=== PATIENT | female | born 1995 | race Caucasian/White ===

== ENCOUNTER 2018-05-19 22:09 | Emergency (ER) | payer MEDICAID ==
[~2018-05-19] VITALS: Ht 154.9 cm; Wt 63.0 kg
[2018-05-19 23:28] VITALS: BP 95/50
[2018-05-19] MEDS ORDERED: ACETAMINOPHEN 325 MG TABLET ONE (23:32)
[2018-05-19 23:54] LABS: BASOPHILS # (AUTO) 0.04 x10^3/uL (0-0.1); BASOPHILS % (AUTO) 1 % (0-1); EOSINOPHILS # (AUTO) 0.04 x10^3/uL (0-0.4); EOSINOPHILS % (AUTO) 1 % (1-7); LYMPHOCYTES # (AUTO) 2.01 x10^3/uL (1-3.4); LYMPHOCYTES % (AUTO) 31 % (22-44); MD NO; MEAN CORPUSCULAR HEMOGLOBIN 28.5 pg (27.0-34.8); MEAN CORPUSCULAR HGB CONC 33.8 g/dL (32.4-35.8); MEAN CORPUSCULAR VOLUME 84.4 fL (80-100); MONOCYTES # (AUTO) 0.41 x10^3/uL (0.2-0.8); MONOCYTES % (AUTO) 6 % (2-9); NEUTROPHILS % (AUTO) 62 % (42-75); PLATELET COUNT 349 x10^3/uL (130-400); RED BLOOD COUNT 4.23 x10^6/uL (3.82-5.3); RED CELL DISTRIBUTION WIDTH 14.8 % (9.6-15.2)
[2018-05-20] MEDS ORDERED: ACETAMINOPHEN 325 MG TABLET PO ONE
[2018-05-20 00:01] LABS: MICROSCOPIC INDICATED
[2018-05-20 00:05] LABS: ALANINE AMINOTRANSFERASE 25 U/L (12-78); ALBUMIN 3.5 g/dL (3.4-5.0); ANION GAP 7 mmol/L (5-15); CALCIUM 8.8 mg/dL (8.5-10.1); CHLORIDE 107 mmol/L (98-107); CREATININE 0.62 mg/dL (0.55-1.02)
[2018-05-20 00:16] LABS: CULTURE INDICATED? YES
[2018-05-20 00:22] LABS: ALKALINE PHOSPHATASE 79 U/L (45-117); BILIRUBIN,TOTAL 0.1 mg/dL (0.2-1.0); TOTAL PROTEIN 7.7 g/dL (6.4-8.2)
== END 2018-05-20 01:20 | disposition home or self-care (01) ==
LOC: ED 23:59
DX: O20.0 Threatened abortion (principal); Z3A.01 Less than 8 weeks gestation of pregnancy
CPT/HCPCS: 36415; 76801; 80053; 81001; 84702; 85025; 86901; 87086; 99285

== ENCOUNTER 2018-08-25 10:25 | Observation (INO) | payer MEDICAID ==
[~2018-08-25] VITALS: Ht 154.9 cm; Wt 68.2 kg
[2018-08-25 11:09] LABS: MICROSCOPIC INDICATED
[2018-08-25] MEDS ORDERED: ONDANSETRON 2MG/ML, 2ML ONE ×2 (11:26→17:51)
[2018-08-25] MEDS: ONDANSETRON 2MG/ML, 2ML IVPush PRN ×2 (11:29→17:53)
[2018-08-25] MEDS ORDERED: LACTATED RINGERS 1,000 ML IVBOLUS ONE (11:30)
[2018-08-25 11:38] VITALS: BP 99/57
[2018-08-25 11:52] LABS: BASOPHILS # (AUTO) 0.02 x10^3/uL (0-0.1); BASOPHILS % (AUTO) 0 % (0-1); EOSINOPHILS # (AUTO) 0.01 x10^3/uL (0-0.4); EOSINOPHILS % (AUTO) 0 % (1-7); LYMPHOCYTES # (AUTO) 0.65 x10^3/uL (1-3.4); LYMPHOCYTES % (AUTO) 9 % (22-44); MD NO; MEAN CORPUSCULAR HEMOGLOBIN 27.3 pg (27.0-34.8); MEAN CORPUSCULAR VOLUME 82.5 fL (80-100); MEAN PLATELET VOLUME 8.8 fL (7.4-10.4); MONOCYTES # (AUTO) 0.23 x10^3/uL (0.2-0.8); MONOCYTES % (AUTO) 3 % (2-9); NEUTROPHILS # (AUTO) 6.06 x10^3/uL (1.8-6.8); NEUTROPHILS % (AUTO) 87 % (42-75); PLATELET COUNT 296 x10^3/uL (130-400); RED BLOOD COUNT 3.93 x10^6/uL (3.82-5.3); RED CELL DISTRIBUTION WIDTH 13.9 % (9.6-15.2)
[2018-08-25] MEDS ORDERED: D5%-LACTATED RINGERS 1,000 ML IV ONE ×2 (12:30→12:39)
[2018-08-25 12:47] LABS: CHLORIDE 107 mmol/L (98-107)
[2018-08-25] MEDS ORDERED: METOCLOPRAMIDE 5 MG/ML, 2ML ONE (12:59)
[2018-08-25] MEDS ORDERED: METOCLOPRAMIDE 5 MG/ML, 2ML IVPush PRN (13:00)
[2018-08-25 13:07] LABS: ALANINE AMINOTRANSFERASE 11 U/L (12-78); ALBUMIN 2.6 g/dL (3.4-5.0); ALKALINE PHOSPHATASE 94 U/L (45-117); ANION GAP 10 mmol/L (5-15); BILIRUBIN,TOTAL 0.3 mg/dL (0.2-1.0); CALCIUM 8.4 mg/dL (8.5-10.1); CREATININE 0.52 mg/dL (0.55-1.02); TOTAL PROTEIN 7.4 g/dL (6.4-8.2)
[2018-08-25 14:08] LABS: RAPID INFLUENZA A Negative (Negative); RAPID INFLUENZA B Negative (Negative)
[2018-08-25] MEDS ORDERED: PROMETHAZINE 25 MG SUPP PR PRN (15:00)
[2018-08-25] MEDS ORDERED: LACTATED RINGERS 1,000 ML IV SCH (16:00)
[2018-08-26] MEDS ORDERED: ONDANSETRON 2MG/ML, 2ML ONE (09:26)
[2018-08-26] MEDS: ONDANSETRON 2MG/ML, 2ML IVPush PRN (09:32)
[2018-08-26] MEDS ORDERED: ONDA4TAB10 PO (13:18)
== END 2018-08-26 13:26 | disposition home or self-care (01) ==
LOC: LDOP 10:25 → LDIP 12:52
PROVIDERS: ADMIT Obstetrics & Gynecology; ATTEND Obstetrics & Gynecology
DX: O21.9 Vomiting of pregnancy, unspecified (principal); O99.282 Endocrine, nutritional and metabolic diseases complicating pregnancy, second trimester; E86.0 Dehydration; Z3A.20 20 weeks gestation of pregnancy
CPT/HCPCS: 36415; 59025; 80053; 81001; 82150; 83690; 85025; 87086; 87400; 96361; 96374; 96375; 96376; G0378; J2405; J2765; J7120; J7121

== ENCOUNTER → 2018-09-14 | Outpatient (CLI) | payer MEDICAID ==
[~2018-09-14] VITALS: Ht 154.9 cm; Wt 68.2 kg
[~2018-09-14] MED LIST: ONDA4TAB10 PO
[2018-09-14 21:56] VITALS: BP 106/60
[2018-09-14 22:16] LABS: MICROSCOPIC INDICATED
[2018-09-14 23:18] LABS: AMPHETAMINE SCREEN, URINE Negative (Negative); BARBITURATE SCREEN, URINE Negative (Negative); BENZODIAZEPINE SCREEN, URINE Negative (Negative); CANNABINOID SCREEN, URINE Negative (Negative); COCAINE SCREEN, URINE Negative (Negative); METHADONE SCREEN, URINE Negative (Negative); OPIATE SCREEN, URINE Negative (Negative)
== END | disposition home or self-care (01) ==
LOC: LDOP 21:38
PROVIDERS: ATTEND Obstetrics & Gynecology
DX: O26.892 Other specified pregnancy related conditions, second trimester (principal); R10.9 Unspecified abdominal pain; O62.9 Abnormality of forces of labor, unspecified; Z3A.23 23 weeks gestation of pregnancy
CPT/HCPCS: 36415; 59025; 80307; 81001; 82731; 87086; 99211; G0463

== ENCOUNTER 2018-10-28 08:18 | Outpatient (CLI) | payer MEDICAID | END 2018-10-28 10:13 | disposition home or self-care (01) | LOC: LDOP 08:18 | PROVIDERS: ATTEND Obstetrics & Gynecology | DX: O26.893 Other specified pregnancy related conditions, third trimester (principal); R10.9 Unspecified abdominal pain; Z3A.29 29 weeks gestation of pregnancy | CPT/HCPCS: 59025; 99211; G0463 ==

== ENCOUNTER 2018-11-11 16:04 | Outpatient (CLI) | payer MEDICAID ==
[~2018-11-11] VITALS: Ht 154.9 cm; Wt 73.6 kg
[2018-11-11 16:48] VITALS: BP 101/66
[2018-11-11 16:48] LABS: MICROSCOPIC INDICATED
[2018-11-11] MEDS ORDERED: PREN1TAB60 PO (17:16)
== END 2018-11-11 18:50 | disposition home or self-care (01) ==
LOC: LDOP 16:04
PROVIDERS: ATTEND Obstetrics & Gynecology
DX: O36.8130 Decreased fetal movements, third trimester, not applicable or unspecified (principal); Z3A.31 31 weeks gestation of pregnancy
CPT/HCPCS: 59025; 76819; 81001; 87086; 99211; G0463

== ENCOUNTER 2018-12-19 14:01 | Outpatient (CLI) | payer MEDICAID ==
[~2018-12-19] VITALS: Ht 154.9 cm; Wt 76.8 kg
[~2018-12-19 14:01] MED LIST changes: +PREN1TAB60 PO
[2018-12-19 14:24] VITALS: BP 111/65
[2018-12-19 14:33] LABS: MICROSCOPIC INDICATED
[2018-12-19] MEDS ORDERED: NITR100C56 PO (15:23)
== END 2018-12-19 15:59 | disposition home or self-care (01) ==
LOC: LDOP 14:01
PROVIDERS: ATTEND Obstetrics & Gynecology
DX: O26.893 Other specified pregnancy related conditions, third trimester (principal); O99.333 Smoking (tobacco) complicating pregnancy, third trimester; Z3A.37 37 weeks gestation of pregnancy
CPT/HCPCS: 59025; 81001; 87086; 99211; G0463

== ENCOUNTER 2018-12-22 08:07 | Inpatient (IN) | payer MEDICAID ==
[~2018-12-22] VITALS: Ht 154.9 cm; Wt 77.3 kg
[~2018-12-22 08:07] MED LIST changes: +NITR100C56 PO
[2018-12-22 08:44] VITALS: BP 105/67
[2018-12-22] MEDS: LACTATED RINGERS 1,000 ML IV SCH (08:45)
[2018-12-22] MEDS ORDERED: D5%-LACTATED RINGERS 1,000 ML IV SCH (09:05)
[2018-12-22] MEDS ORDERED: OXYTOCIN 30U/ 0.9% NaCL 500ML 500 ML IV ONE (09:05)
[2018-12-22] MEDS ORDERED: OXYTOCIN 30U/ 0.9% NaCL 500ML 500 ML IV PRN ×3 (09:05→22:11)
[2018-12-22] MEDS ORDERED: OXYTOCIN 30U/ 0.9% NaCL 500ML 500 ML ONE (09:12)
[2018-12-22] MEDS ORDERED: NEWBORN KIT ONE (09:12)
[2018-12-22] MEDS ORDERED: MISOPROSTOL 200 MCG TABLET ONE (09:12)
[2018-12-22] MEDS ORDERED: LIDOCAINE 1%, 20ML ONE (09:12)
[2018-12-22] MEDS ORDERED: ONDANSETRON 2MG/ML, 2ML IVPush PRN (09:30)
[2018-12-22] MEDS ORDERED: CALCIUM CARBONATE 500 MG TAB.CHEW PO PRN (09:30)
[2018-12-22] MEDS ORDERED: FENTANYL PF 100 MCG/2ML IVPush PRN (09:30)
[2018-12-22] MEDS ORDERED: FENTANYL PF 100 MCG/2ML IV PRN (09:30)
[2018-12-22 09:36] LABS: BASOPHILS # (AUTO) 0.02 x10^3/uL (0-0.1); BASOPHILS % (AUTO) 0 % (0-1); EOSINOPHILS # (AUTO) 0.02 x10^3/uL (0-0.4); EOSINOPHILS % (AUTO) 0 % (1-7); LYMPHOCYTES # (AUTO) 1.55 x10^3/uL (1-3.4); LYMPHOCYTES % (AUTO) 28 % (22-44); MD NO; MEAN CORPUSCULAR HEMOGLOBIN 23.6 pg (27.0-34.8); MEAN CORPUSCULAR HGB CONC 31.6 g/dL (32.4-35.8); MEAN CORPUSCULAR VOLUME 74.8 fL (80-100); MEAN PLATELET VOLUME 8.5 fL (7.4-10.4); MONOCYTES # (AUTO) 0.46 x10^3/uL (0.2-0.8); MONOCYTES % (AUTO) 8 % (2-9); NEUTROPHILS # (AUTO) 3.58 x10^3/uL (1.8-6.8); NEUTROPHILS % (AUTO) 64 % (42-75); PLATELET COUNT 254 x10^3/uL (130-400); RED BLOOD COUNT 3.51 x10^6/uL (3.82-5.3); RED CELL DISTRIBUTION WIDTH 16.7 % (9.6-15.2)
[2018-12-22] MEDS ORDERED: MISOPROSTOL 25 MCG TABLET VG PRN (11:30)
[2018-12-22] MEDS ORDERED: MISOPROSTOL 25 MCG TABLET ONE ×2 (11:34→16:00)
[2018-12-22] MEDS ORDERED: ACETAMINOPHEN 325 MG TABLET ONE ×2 (16:07→23:12)
[2018-12-22] MEDS: ACETAMINOPHEN 325 MG TABLET PO PRN ×2 (16:09→23:13)
[2018-12-22] MEDS ORDERED: MISOPROSTOL 25 MCG TABLET PO PRN (19:30)
[2018-12-22] MEDS ORDERED: LACTATED RINGERS 1,000 ML IV SCH (20:14)
[2018-12-22] MEDS ORDERED: FENTANYL/BUPIV./NS/PF 250 ML EPIDCONT SCH (20:14)
[2018-12-22] MEDS ORDERED: FENTANYL PF 500 MCG, BUPIVACAINE/PF 0.5%, 30ML 62.5 ML in SODIUM CHLORIDE 0.9% 177.5 ML EPIDCONT SCH (20:17)
[2018-12-22] MEDS ORDERED: LACTATED RINGERS 1,000 ML IVBOLUS PRN (20:30)
[2018-12-22] MEDS ORDERED: NALOXONE 0.4 MG/ML, 1ML IVPush PRN (20:30)
[2018-12-22] MEDS ORDERED: EPHEDRINE 50 MG/ML, 1ML IVPush PRN (20:30)
[2018-12-23] MEDS ORDERED: CEFAZOLIN PMX 1GM/50ML 50 ML IV SCH (06:30)
[2018-12-23] MEDS ORDERED: CEFAZOLIN PMX 1GM/50ML 50 ML ONE (06:32)
[2018-12-23] MEDS ORDERED: BUPIVACAINE 0.25% ONE (07:55)
[2018-12-23] MEDS ORDERED: FENTANYL PF 100 MCG/2ML ONE ×2 (07:55→08:34)
[2018-12-23] MEDS: OXYTOCIN 30U/ 0.9% NaCL 500ML 500 ML IV SCH ×2 (09:18→19:18)
[2018-12-23] MEDS ORDERED: OXYTOCIN 10 UNITS/ML, 1ML IM PRN (09:30)
[2018-12-23] MEDS ORDERED: METHYLERGONOVINE 0.2 MG/ML IM PRN (09:30)
[2018-12-23] MEDS ORDERED: ONDANSETRON 2MG/ML, 2ML IV PRN (09:30)
[2018-12-23] MEDS ORDERED: ACETAMINOPHEN 325 MG TABLET PO PRN (09:30)
[2018-12-23] MEDS ORDERED: OXYcodone IR 5MG TABLET PO PRN (09:30)
[2018-12-23] MEDS: LACTATED RINGERS 1,000 ML IV SCH (09:41)
[2018-12-23] MEDS ORDERED: IBUPROFEN 800 MG TABLET ONE (10:45)
[2018-12-23] MEDS: IBUPROFEN 800 MG TABLET PO PRN ×2 (10:47→19:46)
[2018-12-23] MEDS: OXYcodone/APAP 5/325MG TABLET PO PRN ×2 (15:29→19:46)
[2018-12-23 16:20] VITALS: BP 97/60
[2018-12-23 17:19] LABS: BASOPHILS # (AUTO) 0.03 x10^3/uL (0-0.1); BASOPHILS % (AUTO) 0 % (0-1); EOSINOPHILS # (AUTO) 0.02 x10^3/uL (0-0.4); EOSINOPHILS % (AUTO) 0 % (1-7); LYMPHOCYTES # (AUTO) 2.09 x10^3/uL (1-3.4); LYMPHOCYTES % (AUTO) 22 % (22-44); MD NO; MEAN CORPUSCULAR HEMOGLOBIN 24.3 pg (27.0-34.8); MEAN CORPUSCULAR HGB CONC 32.3 g/dL (32.4-35.8); MEAN CORPUSCULAR VOLUME 75.2 fL (80-100); MEAN PLATELET VOLUME 9.4 fL (7.4-10.4); MONOCYTES % (AUTO) 7 % (2-9); NEUTROPHILS # (AUTO) 6.86 x10^3/uL (1.8-6.8); NEUTROPHILS % (AUTO) 71 % (42-75); PLATELET COUNT 270 x10^3/uL (130-400); RED BLOOD COUNT 3.65 x10^6/uL (3.82-5.3); RED CELL DISTRIBUTION WIDTH 16.7 % (9.6-15.2)
[2018-12-23 19:45] VITALS: BP 90/60
[2018-12-23] MEDS: DOCUSATE 100 MG CAPSULE PO PRN (19:46)
[2018-12-24 00:20] VITALS: BP 102/70
[2018-12-24] MEDS: OXYcodone/APAP 5/325MG TABLET PO PRN ×2 (02:38→07:31)
[2018-12-24 04:30] VITALS: BP 99/66
[2018-12-24] MEDS: IBUPROFEN 800 MG TABLET PO PRN ×2 (04:34→12:48)
[2018-12-24] MEDS: OXYTOCIN 30U/ 0.9% NaCL 500ML 500 ML IV SCH (05:18)
[2018-12-24 07:15] VITALS: BP 97/64
[2018-12-24] MEDS: DOCUSATE 100 MG CAPSULE PO PRN (07:31)
[2018-12-24] MEDS ORDERED: PRENATAL VIT/IRON/FA 1 EACH TABLET PO SCH (09:00)
[2018-12-24] MEDS ORDERED: OXYC-302 PO (09:55)
[2018-12-24] MEDS ORDERED: IBUP-1223 PO (09:56)
[2018-12-24] MEDS ORDERED: FERR324T5 PO (09:58)
[2018-12-24] MEDS ORDERED: DOCU-131 PO (10:02)
== END 2018-12-24 13:51 | disposition home or self-care (01) | DRG 807 ==
LOC: LDOP 08:07 → LDIP 08:43 → UNDOADMIN 08:43 → LDIP 09:05 → 2NW 12-23 11:15
PROVIDERS: ADMIT Obstetrics & Gynecology; ATTEND Obstetrics & Gynecology
PROC: 3E033VJ Introduction of Other Hormone into Peripheral Vein, Percutaneous Approach (ICD-10-PCS; principal; 2018-12-23)
PROC: 10E0XZZ Delivery of Products of Conception, External Approach (ICD-10-PCS; 2018-12-23)
PROC: 3E0R3BZ Introduction of Anesthetic Agent into Spinal Canal, Percutaneous Approach (ICD-10-PCS; 2018-12-23)
PROC: 00HU33Z Insertion of Infusion Device into Spinal Canal, Percutaneous Approach (ICD-10-PCS; 2018-12-23)
DX: O62.3 Precipitate labor (principal); Z37.0 Single live birth; O69.81X0 Labor and delivery complicated by cord around neck, without compression, not applicable or unspecified; Z3A.37 37 weeks gestation of pregnancy
CPT/HCPCS: 36415; 85025; 86850; 86900; 88307; 89060; G0378; J0690; J3010; J3490; J2590; J7050; J7120; Q0114

== ENCOUNTER 2020-05-18 22:35 | Emergency (ER) | payer SELFPAY ==
[~2020-05-18] VITALS: Ht 154.9 cm; Wt 62.0 kg
[~2020-05-18 22:35] MED LIST changes: +DOCU-131 PO; +FERR324T5 PO; +IBUP-1223 PO; +OXYC-302 PO
[2020-05-18] MEDS ORDERED: SODIUM CHLORIDE FLUSH 10ML SYR IVF ONE (23:30)
[2020-05-18] MEDS ORDERED: ONDANSETRON 2MG/ML, 2ML ONE (23:30)
[2020-05-18] MEDS ORDERED: ONDANSETRON 2MG/ML, 2ML IVPush ONE (23:30)
[2020-05-18 23:40] LABS: BASOPHILS # (AUTO) 0.03 x10^3/uL (0-0.1); BASOPHILS % (AUTO) 1 % (0-1); EOSINOPHILS # (AUTO) 0.05 x10^3/uL (0-0.4); EOSINOPHILS % (AUTO) 1 % (1-7); LYMPHOCYTES # (AUTO) 2.75 x10^3/uL (1-3.4); LYMPHOCYTES % (AUTO) 46 % (22-44); MD NO; MEAN CORPUSCULAR HEMOGLOBIN 26.6 pg (27.0-34.8); MEAN CORPUSCULAR HGB CONC 32.2 g/dL (32.4-35.8); MEAN CORPUSCULAR VOLUME 82.8 fL (80-100); MEAN PLATELET VOLUME 9.5 fL (7.4-10.4); MONOCYTES # (AUTO) 0.41 x10^3/uL (0.2-0.8); MONOCYTES % (AUTO) 7 % (2-9); NEUTROPHILS # (AUTO) 2.68 x10^3/uL (1.8-6.8); NEUTROPHILS % (AUTO) 45 % (42-75); PLATELET COUNT 377 x10^3/uL (130-400); RED BLOOD COUNT 4.54 x10^6/uL (3.82-5.3); RED CELL DISTRIBUTION WIDTH 15.2 % (9.6-15.2)
[2020-05-18 23:47] LABS: ALANINE AMINOTRANSFERASE 34 U/L (12-78); ALBUMIN 3.7 g/dL (3.4-5.0); ANION GAP 10 mmol/L (5-15); CALCIUM 8.7 mg/dL (8.5-10.1); CHLORIDE 105 mmol/L (98-107)
[2020-05-18] MEDS ORDERED: MORPHINE SULFATE 4 MG/ML, 1ML ONE (23:47)
[2020-05-18 23:52] LABS: ALKALINE PHOSPHATASE 70 U/L (45-117); BILIRUBIN,TOTAL 0.4 mg/dL (0.2-1.0); CREATININE 0.71 mg/dL (0.55-1.02); TOTAL PROTEIN 8.3 g/dL (6.4-8.2)
[2020-05-19] MEDS ORDERED: MORPHINE SULFATE 4 MG/ML, 1ML IVPush PRN
[2020-05-19 00:04] VITALS: BP 101/50
[2020-05-19] MEDS ORDERED: NEOSPORIN OINT. PKT 1 PACKET ONE (00:25)
== END 2020-05-19 00:49 | disposition home or self-care (01) ==
LOC: ED 05-19 00:40
DX: S00.81XA Abrasion of other part of head, initial encounter (principal); R51 Headache; R55 Syncope and collapse; R56.9 Unspecified convulsions; R11.0 Nausea; R94.31 Abnormal electrocardiogram [ECG] [EKG]; F17.210 Nicotine dependence, cigarettes, uncomplicated; X58.XXXA Exposure to other specified factors, initial encounter; Y93.89 Activity, other specified; Y92.89 Other specified places as the place of occurrence of the external cause; Y99.8 Other external cause status
CPT/HCPCS: 36415; 70450; 80053; 80307; 84703; 85025; 93005; 96374; 96375; 99285; 99406; J2270; J2405

== ENCOUNTER 2020-05-22 01:26 | Emergency (ER) | payer SELFPAY ==
[~2020-05-22] VITALS: Ht 154.9 cm; Wt 65.8 kg
--- NOTE | 2020-05-22 01:47 | NUR ---
PT TO ED WITH C/O OF NAUSEA WITH VOMITING X2 WEEKS. REPORTS "I HAVEN'T KEPT ANYTHING DOWN". TOOK ALIEVE AT 0100, SUSPECTS SHE VOMITED IT BACK UP. PT ALSO REPORTS HEADACHE TONIGHT WITH PHOTOSENSITIVITY, HX OF SAME. PT SEEN AT [facility] X3 WEEKS AGO FOR SEIZURES, REPORTS NEURO TOLD HER SHE MAY HAVE ANEURYSM AND TO FOLLOW UP OUTPATIENT. PT UNABLE TO FOLLOW UP DUE TO LACK OF INSURANCE.
[2020-05-22] MEDS ORDERED: ONDANSETRON 2MG/ML, 2ML ONE (01:52)
[2020-05-22] MEDS ORDERED: SODIUM CHLORIDE 0.9% 1,000ML IVBOLUS ONE (02:00)
[2020-05-22] MEDS ORDERED: ONDANSETRON 2MG/ML, 2ML IVPush ONE (02:00)
[2020-05-22 02:19] LABS: MICROSCOPIC NOT IND
[2020-05-22 02:26] LABS: BASOPHILS # (AUTO) 0.02 x10^3/uL (0-0.1); BASOPHILS % (AUTO) 0 % (0-1); EOSINOPHILS # (AUTO) 0.08 x10^3/uL (0-0.4); EOSINOPHILS % (AUTO) 1 % (1-7); LYMPHOCYTES # (AUTO) 2.41 x10^3/uL (1-3.4); LYMPHOCYTES % (AUTO) 40 % (22-44); MD NO; MEAN CORPUSCULAR HEMOGLOBIN 26.7 pg (27.0-34.8); MEAN CORPUSCULAR HGB CONC 32.3 g/dL (32.4-35.8); MEAN CORPUSCULAR VOLUME 82.7 fL (80-100); MEAN PLATELET VOLUME 9.6 fL (7.4-10.4); MONOCYTES # (AUTO) 0.51 x10^3/uL (0.2-0.8); MONOCYTES % (AUTO) 8 % (2-9); NEUTROPHILS % (AUTO) 50 % (42-75); PLATELET COUNT 385 x10^3/uL (130-400); RED CELL DISTRIBUTION WIDTH 14.8 % (9.6-15.2)
[2020-05-22 02:30] LABS: ALANINE AMINOTRANSFERASE 27 U/L (12-78); ALBUMIN 3.9 g/dL (3.4-5.0); ANION GAP 15 mmol/L (5-15); CALCIUM 8.9 mg/dL (8.5-10.1); CHLORIDE 102 mmol/L (98-107); CREATININE 0.73 mg/dL (0.55-1.02)
[2020-05-22 02:32] LABS: AMPHETAMINE SCREEN, URINE Negative (Negative); BARBITURATE SCREEN, URINE Negative (Negative); BENZODIAZEPINE SCREEN, URINE Negative (Negative); CANNABINOID SCREEN, URINE Negative (Negative); COCAINE SCREEN, URINE Negative (Negative); METHADONE SCREEN, URINE Negative (Negative); OPIATE SCREEN, URINE Negative (Negative)
[2020-05-22 02:35] LABS: ALKALINE PHOSPHATASE 76 U/L (45-117); BILIRUBIN,TOTAL 0.5 mg/dL (0.2-1.0); TOTAL PROTEIN 8.5 g/dL (6.4-8.2)
[2020-05-22 02:56] VITALS: BP 98/50
[2020-05-22] MEDS ORDERED: POTASSIUM CHLORIDE 20 MEQ in SODIUM CHLORIDE 0.9% 250 ML IV ONE (03:00)
[2020-05-22] MEDS ORDERED: PROCHLORPERAZINE 5 MG/ML, 2ML IVPush ONE (03:00)
--- NOTE | 2020-05-22 03:02 | NUR ---
PT REPORTS BURNING WITH INFUSION OF K+, DISCUSSED WITH DR. CHAMBERS, CHANGED TO 75ML/HR TO DETERMINE IF PT CAN TOLERATE. ALSO DISCUSSED PO OPTION WITH PT. PT TOLERATING K+ IVF AT THIS TIME.
[2020-05-22] MEDS ORDERED: PROCHLORPERAZINE 5 MG/ML, 2ML ONE (03:05)
[2020-05-22] MEDS ORDERED: POTASSIUM CHLORIDE 20 MEQ TAB.ER.PRT ONE (04:34)
[2020-05-22] MEDS ORDERED: POTASSIUM CHLORIDE 20 MEQ TAB.ER.PRT PO ONE (05:00)
== END 2020-05-22 04:51 | disposition home or self-care (01) ==
LOC: ED 03:38
DX: R11.2 Nausea with vomiting, unspecified (principal); E87.6 Hypokalemia; Z90.49 Acquired absence of other specified parts of digestive tract
CPT/HCPCS: 36415; 80053; 80307; 81003; 83690; 83735; 84703; 85025; 96361; 96365; 96366; 96375; 99284; J0780; J2405; J3480; J7030; J7050

== ENCOUNTER 2020-06-02 11:21 | Emergency (ER) | payer SELFPAY ==
[~2020-06-02] VITALS: Ht 154.9 cm; Wt 64.0 kg
[2020-06-02] MEDS ORDERED: ONDANSETRON 2MG/ML, 2ML IVPush ONE (12:00)
[2020-06-02] MEDS ORDERED: KETOROLAC 30 MG/1 ML ONE (12:00)
[2020-06-02] MEDS ORDERED: SODIUM CHLORIDE FLUSH 10ML SYR IVF ONE (12:00)
[2020-06-02] MEDS ORDERED: SODIUM CHLORIDE 0.9% 1,000ML IVBOLUS ONE (12:00)
[2020-06-02] MEDS ORDERED: ONDANSETRON 2MG/ML, 2ML ONE (12:00)
[2020-06-02] MEDS ORDERED: KETOROLAC 30 MG/1 ML IVPush ONE (12:00)
--- NOTE | 2020-06-02 12:18 | NUR ---
IV PLACED, LABS DRAWN WITH START. IV BOLUS AND MEDS INFUSING PER ERP ORDER. LIGHTS DIMMED, HEIKE WARMER IN PLACE, CALL LIGHT WITHIN REACH.
[2020-06-02 12:22] LABS: BASOPHILS # (AUTO) 0.05 x10^3/uL (0-0.1); BASOPHILS % (AUTO) 1 % (0-1); EOSINOPHILS # (AUTO) 0.04 x10^3/uL (0-0.4); EOSINOPHILS % (AUTO) 1 % (1-7); LYMPHOCYTES # (AUTO) 1.89 x10^3/uL (1-3.4); LYMPHOCYTES % (AUTO) 40 % (22-44); MD NO; MEAN CORPUSCULAR HEMOGLOBIN 26.5 pg (27.0-34.8); MEAN CORPUSCULAR HGB CONC 32.1 g/dL (32.4-35.8); MEAN CORPUSCULAR VOLUME 82.6 fL (80-100); MEAN PLATELET VOLUME 10.1 fL (7.4-10.4); MONOCYTES # (AUTO) 0.35 x10^3/uL (0.2-0.8); MONOCYTES % (AUTO) 7 % (2-9); NEUTROPHILS # (AUTO) 2.39 x10^3/uL (1.8-6.8); NEUTROPHILS % (AUTO) 51 % (42-75); PLATELET COUNT 318 x10^3/uL (130-400); RED BLOOD COUNT 4.71 x10^6/uL (3.82-5.3); RED CELL DISTRIBUTION WIDTH 15.1 % (9.6-15.2)
[2020-06-02 12:34] LABS: ANION GAP 5 mmol/L (5-15); CALCIUM 9.3 mg/dL (8.5-10.1); CHLORIDE 110 mmol/L (98-107); CREATININE 0.79 mg/dL (0.55-1.02)
--- NOTE | 2020-06-02 13:24 | NUR ---
REPORT TO EARLENE, TRANSFER OF CARE AT THIS TIME.
[2020-06-02] MEDS ORDERED: METOCLOPRAMIDE 5 MG/ML, 2ML IVPush ONE (13:30)
[2020-06-02] MEDS ORDERED: METOCLOPRAMIDE 5 MG/ML, 2ML ONE (14:39)
[2020-06-02] MEDS ORDERED: OMNIPAQUE 350 MG/ML, 100ML BOTTLE ONE (15:01)
--- NOTE | 2020-06-02 15:01 | NUR ---
PT TO CT.
[2020-06-02 15:54] VITALS: BP 96/56
== END 2020-06-02 16:33 | disposition home or self-care (01) ==
LOC: ED 11:33
DX: R11.2 Nausea with vomiting, unspecified (principal); R63.0 Anorexia; Z90.49 Acquired absence of other specified parts of digestive tract
CPT/HCPCS: 36415; 74177; 80048; 82040; 84703; 85025; 96361; 96374; 96375; 99285; J1885; J2405; J2765; J7030; Q9967

== ENCOUNTER 2021-01-16 20:02 | Emergency (ER) | payer SELFPAY ==
[~2021-01-16] VITALS: Ht 154.9 cm; Wt 69.1 kg
[~2021-01-16 20:02] MED LIST changes: -OXYC-302 PO; +OXYC1TAB14 PO
[2021-01-16] MEDS ORDERED: LORazepam 1MG TABLET PO ONE ×2 (20:30→22:30)
--- NOTE | 2021-01-16 20:31 | NUR ---
pa at bedside to assess, at bedside, belongings removed and placed in lockup. pt tearful but cooperative, provided warm blankets, maternity panties, and ice pack for r hand
[2021-01-16] MEDS ORDERED: LORazepam 1MG TABLET ONE ×2 (20:34→22:10)
[2021-01-16 21:30] LABS: BASOPHILS % (AUTO) 1 % (0-1); EOSINOPHILS % (AUTO) 1 % (1-7); LYMPHOCYTES % (AUTO) 44 % (22-44); MEAN CORPUSCULAR HEMOGLOBIN 27.1 pg (27.0-34.8); MEAN CORPUSCULAR HGB CONC 32.9 g/dL (32.4-35.8); MEAN PLATELET VOLUME 8.8 fL (7.4-10.4); MONOCYTES % (AUTO) 7 % (2-9); NEUTROPHILS % (AUTO) 47 % (42-75); PLATELET COUNT 431 x10^3/uL (130-400); RED BLOOD COUNT 4.28 x10^6/uL (3.82-5.3); RED CELL DISTRIBUTION WIDTH 15.6 % (9.6-15.2)
[2021-01-16 21:33] LABS: MD NO
[2021-01-16 21:34] LABS: ALBUMIN 3.7 g/dL (3.4-5.0); ANION GAP 6 mmol/L (5-15); CHLORIDE 107 mmol/L (98-107); SALICYLATE LEVEL 2.5 mg/dL (2.8-20.0)
[2021-01-16 21:41] LABS: ALANINE AMINOTRANSFERASE 24 U/L (12-78); ALKALINE PHOSPHATASE 88 U/L (45-117); BILIRUBIN,TOTAL 0.1 mg/dL (0.2-1.0); CREATININE 0.78 mg/dL (0.55-1.02); TOTAL PROTEIN 8.3 g/dL (6.4-8.2)
--- NOTE | 2021-01-16 22:04 | NUR ---
pt mood continues to be labile, intermittent fits of crying noted, redirects with difficulty. pt able to ambulate to bathroom to provide urine sample, walked with steady gait and good balance, returned safely to bed no signs or symptoms of acute dsitress noted respirations even and unlabored.
--- NOTE | 2021-01-16 22:14 | NUR ---
dr tavarez in room to assess, pt medicated as ordered, pt verbalizes appreciation for cares and concern. no signs or symptoms of acute distress noted respiratons even and unlabored.
--- NOTE | 2021-01-16 22:16 | NUR ---
TP RN: PT DENIED BY [facility] DUE TO INSURANCE.
[2021-01-16 22:22] LABS: MICROSCOPIC INDICATED
[2021-01-16 22:27] LABS: AMPHETAMINE SCREEN, URINE Negative (Negative); BARBITURATE SCREEN, URINE Negative (Negative); BENZODIAZEPINE SCREEN, URINE Positive (Negative); CANNABINOID SCREEN, URINE Negative (Negative); COCAINE SCREEN, URINE Negative (Negative); METHADONE SCREEN, URINE Negative (Negative); OPIATE SCREEN, URINE Negative (Negative)
--- NOTE | 2021-01-16 22:31 | NUR ---
pt in bed with no signs or symptoms of acute distress noted respirations even and unlabored eating food provided by from outside.
--- NOTE | 2021-01-16 23:47 | NUR ---
pt in bed with and registration at bedside, with telepsych computer in room. pt reports feeling more anxious again, asking for an update. pt informed that labs are complete and now we are waiting for the telepsych eval, pt and verbalize understanding and agreement with plan of care. sitter in doorway. pt in bed with no signs or symptoms of acute distress noted respirations even and unlabored
--- NOTE | 2021-01-17 00:38 | NUR ---
pt now resting quietly in bed with eyes closed and in gurney with her. no signs or symptoms of acute distress noted respirations even and unlabored. sitter in doorway
--- NOTE | 2021-01-17 00:54 | NUR ---
PT IN [facility] MOVED TO ED-03, NO SIGNS OR SYMPTOMS OF ACUTE DISTRESS NOTED RESPIRATIONS EVEN AND UNLABORED, DENIES NEED OR DISCOMFORT AT THIS TIME. IN [facility] WITH PT. SITTER IN DOORWAY.
--- NOTE | 2021-01-17 01:26 | NUR ---
report recieved from jose luis reeves. pt resting in [facility], no needs at this time, in line of sight of justyna
[2021-01-17 01:45] VITALS: BP 94/61
[2021-01-17] MEDS ORDERED: GABAPENTIN 300 MG CAPSULE ONE (02:16)
--- NOTE | 2021-01-17 02:24 | NUR ---
spoke with with md pt not get recieve anymore ativan because of sedation level and need to be awake when talking with psyciatrist. pt medicated with gabapentin, ok per md. pt states she is going to freak out and that what are we going to do about it. pt's cursing at this rn, told them both that the pt is not allowed to leave because of her stating self harm. agrees to not yell and will be calm. pt requested female nurse, supervisor inspection aware, this rn to switch assignment at 0300, pt aware
--- NOTE | 2021-01-17 02:52 | NUR ---
RECEIVED REPORT FROM KARY MAC TO ASSUME CARE OF PT. ROOM SECURED. SITTER IN [place].
--- NOTE | 2021-01-17 03:03 | NUR ---
PT ASKED TO SEE CHARGE NURSE, THIS RN WENT AND SPOKE WITH PT, PT STATED THAT SHE WAS NOT HAPPY WITH HER CARE AND WAS NOT BEING MEDICATED NEEDED, AND "NORMALLY A THERAPIST WOULD COME DOWN RIGHT AWAY AND A MANAGER [employer]IVERSITY" TO PT STATED THAT SHE WANTED TO LEAVE, BELONGINGS GIVEN TO PT AND PT LEFT WITH DENEEN.
[2021-01-17] MEDS ORDERED: GABAPENTIN 300 MG CAPSULE PO ONE (03:30)
== END 2021-01-17 03:28 | disposition left against medical advice (07) ==
LOC: ED 20:32
DX: F32.1 Major depressive disorder, single episode, moderate (principal); G89.11 Acute pain due to trauma; M79.641 Pain in right hand; F60.3 Borderline personality disorder; R45.851 Suicidal ideations; N30.00 Acute cystitis without hematuria; X58.XXXA Exposure to other specified factors, initial encounter; Y93.89 Activity, other specified; Y92.89 Other specified places as the place of occurrence of the external cause; Y99.8 Other external cause status
CPT/HCPCS: 36415; 80053; 80143; 80179; 80307; 80320; 81001; 84703; 85025; 87077; 87086; 87186; 99284; G0480